=== PATIENT | male | born 2000 | race Caucasian/White ===

== ENCOUNTER 2019-04-14 22:36 | Emergency (ER) | payer MEDICAID ==
[~2019-04-14] VITALS: Ht 193 cm; Wt 124.3 kg
[2019-04-14 22:44] VITALS: Ht 193 cm; Wt 124.3 kg
[2019-04-14 23:49] VITALS: BP 135/81
== END 2019-04-14 23:49 | disposition home or self-care (01) ==
LOC: ED 22:36
DX: S76.911A Strain of unspecified muscles, fascia and tendons at thigh level, right thigh, initial encounter (principal); Y04.8XXA Assault by other bodily force, initial encounter; Y93.89 Activity, other specified; Y92.89 Other specified places as the place of occurrence of the external cause; Y99.8 Other external cause status

== ENCOUNTER 2019-06-25 20:45 | Emergency (ER) | payer SELFPAY ==
[~2019-06-25] VITALS: Ht 193 cm; Wt 126.6 kg
[2019-06-25 20:50] VITALS: Ht 193 cm; Wt 126.6 kg
[2019-06-25 23:47] VITALS: BP 126/74
== END 2019-06-25 23:47 | disposition home or self-care (01) ==
LOC: ED 20:45
DX: S92.352A Displaced fracture of fifth metatarsal bone, left foot, initial encounter for closed fracture (principal); W22.8XXA Striking against or struck by other objects, initial encounter; Y93.89 Activity, other specified; Y92.89 Other specified places as the place of occurrence of the external cause; Y99.8 Other external cause status
CPT/HCPCS: Q0092

== ENCOUNTER 2019-06-28 09:27 | Emergency (ER) | payer SELFPAY ==
[~2019-06-28] VITALS: Ht 193 cm; Wt 124.3 kg
[2019-06-28 09:31] VITALS: Ht 193 cm; Wt 124.3 kg
[2019-06-28 09:58] VITALS: BP 125/74
== END 2019-06-28 09:58 | disposition home or self-care (01) ==
LOC: ED 09:27
DX: S62.307G Unspecified fracture of fifth metacarpal bone, left hand, subsequent encounter for fracture with delayed healing (principal); X58.XXXD Exposure to other specified factors, subsequent encounter